=== PATIENT | male | born 1955 | race Two or more races ===

== ENCOUNTER 2018-04-23 23:19 | Emergency (ER) | payer OTHER ==
[2018-04-23] MEDS ORDERED: FUROSEMIDE INJ/PF 40 MG/4 ML SDV IV ONE (23:46)
--- NOTE | 2018-04-23 23:49 | ER Document Report ---
ED General - General Chief Complaint: CHF Exacerbation Stated Complaint: DIFFICULTY BREATHING Time Seen by Provider: 04/23/18 23:41 Notes: Patient is a very pleasant 62-year-old male with a history of congestive heart failure who has a known ejection fraction of 25% and AICD in place. No chest pain. He presents with difficulty breathing. He says been worsening over the last few days. She says that he has not been following his diet. He has been eating a lot of salty foods and not been very compliant with his diet. He says he has been taking his medicines. He takes Lasix 40 mg twice a day. No fevers. No vomiting. No diarrhea. He says he feels like he has some swelling and subcutaneous tissues abdomen but otherwise does not have significant abdomen pain. Patient denies much swelling or edema in his legs. He does have previous history of CA. He says this time does not feel similar to his previous CA. No other complaints at this time. TRAVEL OUTSIDE OF THE [place] IN LAST 30 DAYS: No - Related Data Allergies/Adverse Reactions: No Known Allergies Allergy (Verified 07/29/12 11:34) Past Medical History - Social History Smoking Status: Never Smoker Frequency of alcohol use: None Drug Abuse: None Family History: Reviewed & Not Pertinent - Past Medical History Cardiac Medical History: Reports: Hx Hypercholesterolemia - Immunizations Hx Diphtheria, Pertussis, Tetanus Vaccination: No Review of Systems - Review of Systems Notes: My Normal Review Basic REVIEW OF SYSTEMS: CONSTITUTIONAL : Denies fever, chills, or sweats. Denies recent illness. EENT: Denies eye, ear, throat, or mouth pain or symptoms. Denies nasal or sinus congestion. CARDIOVASCULAR: Denies chest pain. RESPIRATORY: Dyspnea that is worse when he lays flat. GASTROINTESTINAL: Denies abdominal pain. Denies nausea, vomiting, or diarrhea. GENITOURINARY: Denies difficulty urinating, painful urination, burning, frequency, or blood in urine. SKIN: Denies rash or skin lesions. NEUROLOGICAL: Denies altered mental status or loss of consciousness. Denies headache. Denies weakness or paralysis or loss of use of either side. Denies problems with gait or speech. Denies sensory or motor loss. ALL OTHER SYSTEMS REVIEWED AND NEGATIVE. Physical Exam - Vital signs Vitals: Temp Pulse Resp BP Pulse Ox 97.7 F 88 20 147/78 H 95 04/23/18 23:26 04/23/18 23:26 04/23/18 23:26 04/23/18 23:26 04/23/18 23:26 - Notes Notes: General Appearance: Well nourished, alert, cooperative, mild acute distress, no obvious discomfort. Vitals: reviewed, See vital signs table. Head: no swelling or tenderness to the head Eyes: PERRL, EOMI, Conjuctiva clear Mouth: No decreasd moisture Neck: Supple, no neck tenderness, No thyromegaly Lungs: No wheezing, basilar rales, No rhonci, No accessory muscle use, good air exchange bilaterally. Heart: Normal rate, Regular rythm, No murmur, no rub Abdomen: Normal BS, soft, No rigidity, No abdominal tenderness, No guarding, no rebound, no abdominal masses, no organomegaly Extremities: strength 5/5 in all extremities, good pulses in all extremities, no swelling or tenderness in the extremities, bilateral lower extremity edema. Skin: warm, dry, appropriate color, no rash Neuro: speech clear, oriented x 3, normal affect, responds appropriately to questions. Course - Re-evaluation Re-evalutation: 04/24/18 06:25 1 dose of Lasix patient a large amount diuresis and feels much improved. He is able to lay down completely flat with any difficulty breathing. Oxygen saturation is normal except for when he sleeps. He has some sleep apnea therefore his oxygen saturation drops a little bit when he sleeps however when he is awake his oxygen saturation is 97-98%. He has no increased work of breathing. Lung navarro are now clear. I talked at length about avoiding salt in his diet and watching what he eats. He agrees to do this. Encouraged him to take his furosemide as prescribed. I encouraged him return to ER immediately if he has chest pain, difficulty breathing, fevers, or if he feels unwell. Patient agrees with plan and will be discharged home. Dictation of this chart was performed using voice recognition software; therefore, there may be some unintended grammatical errors. - Vital Signs Vital signs: Temp Pulse Resp BP Pulse Ox 98.2 F 88 16 99/59 L 94 04/24/18 03:01 04/23/18 23:26 04/24/18 03:01 04/24/18 03:01 04/24/18 03:01 - Laboratory Result Diagrams: 04/24/18 00:10 04/24/18 01:55 Laboratory results interpreted by me: 04/24/18 04/24/18 04/24/18 00:10 01:55 01:55 RBC 4.06 L Hgb 11.9 L Hct 35.6 L RDW 14.4 H Lymphocytes % 12.9 L BUN 24 H Glucose 137 H NT-Pro-B Natriuret Pep 2040 H - EKG Interpretation by Me Additional EKG results interpreted by me: 04/24/18 00:01 EKG is reviewed and interpreted by me. EKG shows sinus rhythm with a rate of 75 bpm. Patient has a right bundle branch block which is new in comparison to his old EKG from July 29, 2012; however, patient has had a pacemaker ICD placed since his previous EKG. AR interval is within normal range. QRS duration is prolonged. QT interval is within normal range. Patient does have some Q waves in the anterior leads. No ST segment elevation or depression. Discharge - Discharge Clinical Impression: CHF (congestive heart failure) Qualifiers: Heart failure type: unspecified Heart failure chronicity: chronic Qualified Code(s): I50.9 - Heart failure, unspecified Condition: Good Disposition: HOME, SELF-CARE Additional Instructions: Please return to the ER immediately if you develop difficulty breathing, chest pain, fevers, or feel unwell. Please follow up with your doctor on Friday. Avoid salt in your diet. please take your furosemide as prescribed. [facility]errals: [facility] [[facility]] - Follow up as needed
[2018-04-24 00:32] LABS: ABSOLUTE BASOPHILS # (AUTO) 0.1 10^3/uL (0.0-0.2); ABSOLUTE EOSINOPHILS # (AUTO) 0.4 10^3/uL (0.0-0.6); ABSOLUTE LYMPHOCYTES (AUTO) 1.3 10^3/uL (0.5-4.7); ABSOLUTE MONOCYTES (AUTO) 0.6 10^3/uL (0.1-1.4); ABSOLUTE NEUT (AUTO) 7.5 10^3/uL (1.7-8.2); BASOPHILS % (AUTO) 0.7 % (0-2); EOSINOPHILS % (AUTO) 4.1 % (0-6); HEMATOCRIT 35.6 % (37.9-51.0); HEMOGLOBIN 11.9 g/dL (13.5-17.0); LYMPHOCYTES % (AUTO) 12.9 % (13-45); MEAN CORPUSCULAR HEMOGLOBIN 29.4 pg (27.0-33.4); MEAN CORPUSCULAR HGB CONC 33.5 g/dL (32.0-36.0); MEAN CORPUSCULAR VOLUME 88 fl (80-97); MONOCYTES % (AUTO) 6.3 % (3-13); PLATELET COUNT 200 10^3/uL (150-450); RED BLOOD COUNT 4.06 10^6/uL (4.35-5.55); RED CELL DISTRIBUTION WIDTH 14.4 % (11.5-14.0); TOTAL CELLS COUNTED % (AUTO) 100 %; WHITE BLOOD COUNT 9.8 10^3/uL (4.0-10.5)
--- NOTE | 2018-04-24 00:56 | RADIOLOGY REPORT (SQ) ---
CLINICAL HISTORY: dyspnea COMPARISON: None. TECHNIQUE: XR CHEST 1 VIEW 04/23/2018 11:46 PM STILL TENDER FINDINGS: Cardiac silhouette is enlarged. Sternotomy and left AICD present. Lungs are clear without consolidation, atelectasis, mass or edema. There are small pleural effusions. There is no pneumothorax. There are no acute osseous findings. IMPRESSION: Small pleural effusions. No definite pneumonia.
[2018-04-24 02:25] LABS: ALANINE AMINOTRANSFERASE 33 U/L (21-72); ALBUMIN 4.3 g/dL (3.5-5.0); ALKALINE PHOSPHATASE 113 U/L (38-126); ANION GAP 11 (5-19); ASPARTATE AMINO TRANSFERASE 22 U/L (17-59); BILIRUBIN,DIRECT 0.3 mg/dL (0.0-0.4); BILIRUBIN,TOTAL 0.6 mg/dL (0.2-1.3); BLOOD UREA NITROGEN 24 mg/dL (7-20); CALCIUM 9.2 mg/dL (8.4-10.2); CARBON DIOXIDE 30 mmol/L (22-30); CHLORIDE 102 mmol/L (98-107); CREATINE KINASE 80 U/L (55-170); GLUCOSE 137 mg/dL (75-110); POTASSIUM 4.7 mmol/L (3.6-5.0); SODIUM 143.4 mmol/L (137-145); TOTAL PROTEIN 7.6 g/dL (6.3-8.2)
[2018-04-24 02:35] LABS: CREATINE KINASE MB 1.38 ng/mL (<4.55); TROPONIN I 0.029 ng/mL
[2018-04-24 03:25] VITALS: BP 99/59
--- NOTE | 2018-04-24 09:28 | EKG REPORT ---
SEVERITY:- ABNORMAL ECG - SINUS RHYTHM RIGHT BUNDLE BRANCH BLOCK INFERIOR INFARCT, OLD LATERAL INFARCT, OLD ANTERIOR INFARCT, OLD : Confirmed by: Dorita Manuel 24-Apr-2018 09:27:05
== END 2018-04-24 03:25 | disposition home or self-care (01) ==
LOC: ER 23:19
DX: I50.9 Heart failure, unspecified (principal); E78.00 Pure hypercholesterolemia, unspecified; Z95.810 Presence of automatic (implantable) cardiac defibrillator; I25.2 Old myocardial infarction
CPT/HCPCS: 93005; 99285; 96374; 36415; 82553; 82550; 85025; 80053; 84484; 83880; 71045; 93010; J1940

== ENCOUNTER 2018-09-24 10:30 | Emergency (ER) | payer OTHER, MEDICARE ==
--- NOTE | 2018-09-24 11:17 | ER Document Report ---
ED Medical Screen (RME) - General Chief Complaint: Chest Pain Stated Complaint: CHEST PAIN Time Seen by Provider: 09/24/18 11:15 Primary Care Provider: ARLETTE WRAY [Primary Care Provider] - Follow up as needed Mode of Arrival: Wheelchair Information source: Patient Notes: Patient presents with family member with a complaint of chest pain off and on since yesterday. Patient also reports shortness of breath. Patient was due to have a repeat heart cath but patient is a patient of the [facility] and they have dropped the ball and getting his procedure scheduled. Patient does have a history of stent x1 with pacemaker, CAD, diabetes, CHF and hypertension. Patient does take Brilinta as well as aspirin daily and has had both of these today I have greeted and performed a rapid initial assessment of this patient. A comprehensive ED assessment and evaluation of the patient, analysis of test results and completion of the medical decision making process will be conducted by additional ED providers. TRAVEL OUTSIDE OF THE [place] IN LAST 30 DAYS: No - Related Data Allergies/Adverse Reactions: Flu Vaccine Allergy (Uncoded 09/24/18 10:35) Past Medical History - Past Medical History Cardiac Medical History: Reports: Hx Congestive Heart Failure, Hx Hypercholesterolemia, Hx Hypertension Renal/ Medical History: Denies: Hx Peritoneal Dialysis - Immunizations Hx Diphtheria, Pertussis, Tetanus Vaccination: No Physical Exam - Vital signs Vitals: Temp Pulse Resp BP Pulse Ox 98.0 F 74 24 H 94/60 L 94 09/24/18 10:50 09/24/18 10:50 09/24/18 10:50 09/24/18 10:50 09/24/18 10:50 - Respiratory Respiratory status: No respiratory distress. No: Labored - Cardiovascular Rhythm: Regular Heart sounds: S1 appreciated, S2 appreciated Course - Vital Signs Vital signs: Temp Pulse Resp BP Pulse Ox 98.0 F 74 24 H 94/60 L 94 09/24/18 10:50 09/24/18 10:50 09/24/18 10:50 09/24/18 10:50 09/24/18 10:50 Doctor's Discharge - Discharge Referrals: [facility] [Primary Care Provider] - Follow up as needed
--- NOTE | 2018-09-24 11:20 | RADIOLOGY REPORT (SQ) ---
EXAM DESCRIPTION: CHEST 2 VIEWS COMPLETED DATE/TIME: 09/24/2018 11:07 am REASON FOR STUDY: Chest Pain COMPARISON: 04/24/2018 EXAM PARAMETERS: NUMBER OF VIEWS: two views TECHNIQUE: Digital Frontal and Lateral radiographic views of the chest acquired. RADIATION DOSE: NA LIMITATIONS: none FINDINGS: LUNGS AND PLEURA: No opacities, masses or pneumothorax. No pleural effusion. MEDIASTINUM AND HILAR STRUCTURES: No masses or contour abnormalities. HEART AND VASCULAR STRUCTURES: Heart normal size. No evidence for failure. BONES: No acute findings. HARDWARE: Median sternotomy hardware with evidence of prior CABG. Left-sided defibrillator with lead overlying right ventricle. OTHER: No other significant finding. IMPRESSION: NO ACUTE RADIOGRAPHIC FINDING IN THE CHEST. TECHNICAL DOCUMENTATION: JOB ID: [id number] [employer]- All Rights Reserved Reading location - IP/workstation name: [email or web address]
[2018-09-24 11:44] LABS: ABSOLUTE EOSINOPHILS # (AUTO) 0.2 10^3/uL (0.0-0.6); ABSOLUTE LYMPHOCYTES (AUTO) 1.1 10^3/uL (0.5-4.7); ABSOLUTE MONOCYTES (AUTO) 0.5 10^3/uL (0.1-1.4); ABSOLUTE NEUT (AUTO) 8.1 10^3/uL (1.7-8.2); BASOPHILS % (AUTO) 0.5 % (0-2); EOSINOPHILS % (AUTO) 1.8 % (0-6); HEMOGLOBIN 11.7 g/dL (13.5-17.0); LYMPHOCYTES % (AUTO) 10.6 % (13-45); MEAN CORPUSCULAR HEMOGLOBIN 28.7 pg (27.0-33.4); MEAN CORPUSCULAR HGB CONC 32.5 g/dL (32.0-36.0); MEAN CORPUSCULAR VOLUME 89 fl (80-97); MONOCYTES % (AUTO) 4.9 % (3-13); PLATELET COUNT 182 10^3/uL (150-450); RED BLOOD COUNT 4.06 10^6/uL (4.35-5.55); RED CELL DISTRIBUTION WIDTH 14.4 % (11.5-14.0); SEGMENTED NEUTROPHILS % (AUTO) 82.2 % (42-78); TOTAL CELLS COUNTED % (AUTO) 100 %; WHITE BLOOD COUNT 9.9 10^3/uL (4.0-10.5)
[2018-09-24 11:53] LABS: INTERNATIONAL RATION (INR) 0.87; PROTHROMBIN TIME 12.3 SEC (11.4-15.4)
[2018-09-24 12:04] LABS: ALANINE AMINOTRANSFERASE 28 U/L (21-72); ALBUMIN 4.1 g/dL (3.5-5.0); ALKALINE PHOSPHATASE 114 U/L (38-126); ANION GAP 13 (5-19); ASPARTATE AMINO TRANSFERASE 19 U/L (17-59); BILIRUBIN,DIRECT 0.3 mg/dL (0.0-0.4); BILIRUBIN,TOTAL 0.3 mg/dL (0.2-1.3); BLOOD UREA NITROGEN 40 mg/dL (7-20); CALCIUM 9.1 mg/dL (8.4-10.2); CARBON DIOXIDE 27 mmol/L (22-30); CHLORIDE 101 mmol/L (98-107); CREATINE KINASE 78 U/L (55-170); GLUCOSE 241 mg/dL (75-110); POTASSIUM 4.9 mmol/L (3.6-5.0); SODIUM 140.6 mmol/L (137-145); TOTAL PROTEIN 7.3 g/dL (6.3-8.2)
[2018-09-24 12:28] LABS: CREATINE KINASE MB 0.74 ng/mL (<4.55); TROPONIN I 0.019 ng/mL
--- NOTE | 2018-09-24 15:31 | RADIOLOGY REPORT (SQ) ---
EXAM DESCRIPTION: ABDOMEN 2 VIEWS COMPLETED DATE/TIME: 09/24/2018 3:22 pm REASON FOR STUDY: Constipation, difficulty breathing in COMPARISON: None. NUMBER OF VIEWS: One view. TECHNIQUE: Supine radiographic image of the abdomen acquired. LIMITATIONS: None. FINDINGS: BOWEL GAS PATTERN: Normal bowel gas pattern. No dilated loops. CONSTIPATION: mild CALCIFICATIONS: No suspicious calcifications. SOFT TISSUES: No gross mass or suggestion of organomegaly. HARDWARE: None in the abdomen. BONES: No acute fracture. No worrisome bone lesions. OTHER: No other significant finding. IMPRESSION: NO RADIOGRAPHIC EVIDENCE FOR ACUTE ABDOMINAL DISEASE. Mild constipation. TECHNICAL DOCUMENTATION: JOB ID: [id number] [place]-72 2010 [employer]- All Rights Reserved Reading location - IP/workstation name: [email or web address]
[2018-09-24 18:14] VITALS: BP 117/78
--- NOTE | 2018-09-24 19:40 | EKG REPORT ---
SEVERITY:- ABNORMAL ECG - SINUS RHYTHM ATRIAL PREMATURE COMPLEX RIGHT BUNDLE BRANCH BLOCK INFERIOR INFARCT, AGE INDETERMINATE ANTEROLATERAL INFARCT, AGE INDETERMINATE : Confirmed by: Salome Mcmanus MD 24-Sep-2018 19:39:39
--- NOTE | 2018-09-24 21:23 | ER Document Report ---
Entered by ARNAUD STOCKTON SCRIBE 09/24/18 1448 Acting as scribe for:KAREN CEJA MD ED Cardiac - General Chief Complaint: Chest Pain Stated Complaint: CHEST PAIN Time Seen by Provider: 09/24/18 11:15 Primary Care Provider: K[facility]AL[facility],ARLETTE [Primary Care Provider] - Follow up as needed Mode of Arrival: Wheelchair Information source: Patient Notes: 63-year-old male with x1 stent placed in 2011 who presents to the emergency department today with complaints of chest pain with associated shortness of breath. Patient states he has been having chest pain for several months but it has become constant over the last x1-2 weeks. Patient states the pain happens about once a day and he takes nitroglycerin for it which eases the pain. Patient states he was put on Imdur around x3 months ago and was taken off of it x1 month ago. Patient states he did not really notice any change in his chest pain or shortness of breath with the starting or stopping of the Imdur. Patient mentions dyspnea on exertion but states that he sometimes has shortness of breath as well when lying down. Patient is not on home oxygen. Patient states he believes it is due to constipation. Patient states that he had a bowel movement earlier today. Daughter at bedside states the patient's blood pressure ranges anywhere from 120/80 - 90/60. TRAVEL OUTSIDE OF THE [place] IN LAST 30 DAYS: No - Related Data Allergies/Adverse Reactions: Flu Vaccine Allergy (Uncoded 09/24/18 10:35) Past Medical History - General Information source: Patient - Social History Smoking Status: Former Smoker Cigarette use (# per day): No Frequency of alcohol use: None Drug Abuse: None Lives with: Family Family History: Reviewed & Not Pertinent Patient has suicidal ideation: No Patient has homicidal ideation: No - Past Medical History Cardiac Medical History: Reports: Hx Congestive Heart Failure, Hx Hypercholesterolemia, Hx Hypertension Endocrine Medical History: Reports: Hx Diabetes Mellitus Type 2 Past Surgical History: Reports: Hx Coronary Stent, Hx Pacemaker - Immunizations Hx Diphtheria, Pertussis, Tetanus Vaccination: No Review of Systems - Review of Systems Constitutional: No symptoms reported EENT: No symptoms reported Cardiovascular: See HPI, Chest pain Respiratory: See HPI, Cough, Short of breath Gastrointestinal: See HPI, Constipation Genitourinary: No symptoms reported Male Genitourinary: No symptoms reported Musculoskeletal: No symptoms reported Skin: No symptoms reported Hematologic/Lymphatic: No symptoms reported Neurological/Psychological: No symptoms reported -: Yes All other systems reviewed and negative Physical Exam - Vital signs Vitals: Temp Pulse Resp BP Pulse Ox 98.0 F 74 24 H 94/60 L 94 09/24/18 10:50 09/24/18 10:50 09/24/18 10:50 09/24/18 10:50 09/24/18 10:50 - Notes Notes: Physical Exam: General: Alert, appears well. HEENT: Normocephalic. Atraumatic. PERRL. Extraocular movements intact. Oropharynx clear. Neck: Supple. Non-tender. Respiratory: No respiratory distress. Clear and equal breath sounds bilaterally. Cardiovascular: Regular rate and rhythm. Abdominal: Obese. No distension. Normal Bowel Sounds. Back: Non-tender. No deformity or step off. Extremities: Moves all four extremities. Upper extremities: Normal inspection. Normal ROM. Lower extremities: Trace edema. Normal ROM. Neurological: Normal cognition. AAOx4. Normal speech. Psychological: Normal affect. Normal Mood. Skin: Warm. Dry. Normal color. Course - Re-evaluation Re-evalutation: 09/24/18 18:01 On reviewing the history with the patient and his daughter, it appears that he drinks a large number of regular sodas. He is morbidly obese and this contributes to his breathing difficulty. We had a long discussion about switching to diet sodas and told him about my experience. He is agreeable to try this route in order to help lose weight. He will also drink some mag citrate when he gets home to try to help empty some of the stool out of his colon. He does have bowel movements up to 3 times a day, but his x-rays do show moderate constipation. The chest pain he describes sounds like stable angina as it occurred once daily and immediately relieved with nitroglycerin. The right bundle branch block that his providers were concerned about is not a new finding and was present when he was seen here in April 2018. His daughter has been in contact with his master control technician in [place] and they are trying to get him scheduled for a cardiac catheterization. When I have gone back into see the patient, nurse had laid him down and his breathing became much more difficult and his pulse ox dropped to about 89%. I helped him sit up to a comfortable level, and his breathing improved and his pulse ox reading increased to 96 to 98% on room air. Is obvious that his obesity and constipation impairs his respiratory excursion and he should be in some upright position as tolerated all the time. I discussed his case with Dr. Mcmanus to see if he agreed that there is no urgent reason to do a cardiac cath but he should probably have one sometime in the near future. Dr. Mcmanus agrees and feels the patient can safely be discharged home. - Vital Signs Vital signs: Temp Pulse Resp BP Pulse Ox 98.0 F 74 17 99/76 L 90 L 09/24/18 10:50 09/24/18 10:50 09/24/18 17:26 09/24/18 17:26 09/24/18 17:25 - Laboratory Result Diagrams: 09/24/18 11:28 09/24/18 11:28 Laboratory results interpreted by me: 09/24/18 09/24/18 11:28 11:28 RBC 4.06 L Hgb 11.7 L Hct 36.0 L RDW 14.4 H Seg Neutrophils % 82.2 H Lymphocytes % 10.6 L BUN 40 H Creatinine 1.59 H Est GFR ( Amer) 53 L Est GFR (Non-Af Amer) 44 L Glucose 241 H - Diagnostic Test Radiology reviewed: Image reviewed, Reports reviewed - Chest x-ray does not show any acute process and there is no congestive heart failure at this time. The two-way abdomen shows constipation but no other abnormality. Discharge - Discharge Clinical Impression: Shortness of breath Chest pain Qualifiers: Chest pain type: unspecified Qualified Code(s): R07.9 - Chest pain, unspecified Constipation Qualifiers: Constipation type: unspecified constipation type Qualified Code(s): K59.00 - Constipation, unspecified Condition: Stable Disposition: HOME, SELF-CARE Additional Instructions: Your evaluation today shows that much of your breathing difficulty is related to your obesity and constipation. When you lay down you have difficulty breathing in deep enough. When you sit up, your oxygen levels are normal. You report chest pain that occurs once daily and is promptly relieved by nitroglycerin. This would be called stable angina. When you get home this evening, drink a bottle of magnesium citrate. Drink plenty of water, but be sure to avoid any added sodium. Start taking MiraLAX once daily. Make a serious attempt to begin losing weight, as this will help your breathing problem. Call your master control technician tomorrow to review this visit and see if they can get you on the schedule for a cardiac catheterization. RETURN TO THE EMERGENCY ROOM IF ANY NEW OR WORSENING SYMPTOMS. Referrals: [facility] [Primary [facility]] - Follow up as needed Scribe Attestation: 09/24/18 18:07 I personally performed the services described in the documentation, reviewed and edited the documentation which was dictated to the scribe in my presence, and it accurately records my words and actions. I personally performed the services described in the documentation, reviewed and edited the documentation which was dictated to the scribe in my presence, and it accurately records my words and actions.
== END 2018-09-24 18:20 | disposition home or self-care (01) ==
LOC: ER 10:30
DX: R07.9 Chest pain, unspecified (principal); K59.00 Constipation, unspecified; E66.01 Morbid (severe) obesity due to excess calories; R06.02 Shortness of breath; I45.10 Unspecified right bundle-branch block; R05 Cough; R60.0 Localized edema; I10 Essential (primary) hypertension; E11.9 Type 2 diabetes mellitus without complications; Z95.0 Presence of cardiac pacemaker; Z95.5 Presence of coronary angioplasty implant and graft; Z87.891 Personal history of nicotine dependence; Z88.7 Allergy status to serum and vaccine
CPT/HCPCS: 36415; 71046; 74019; 80053; 82550; 82553; 83880; 84484; 85025; 85610; 93005; 93010; 99285

== ENCOUNTER 2019-10-08 17:42 | Emergency (ER) | payer OTHER ==
--- NOTE | 2019-10-08 17:58 | ER Document Report ---
ED General - General Chief Complaint: Shortness Of Breath Stated Complaint: SHORTNESS OF BREATH Time Seen by Provider: 10/08/19 17:51 Primary Care Provider: AGUSTÍN FARRAR FNP-C [Primary Care Provider] - Follow up as needed Mode of Arrival: Ambulatory Information source: Patient Notes: 64-year-old male with chief complaint of chest pain. Please note he has a history of CVA atherosclerosis vascular disease and saw Dr. Azul 24 Sep 2018 with the following evaluation below; 63-year-old male with x1 stent placed in 2011 who presents to the emergency department today with complaints of chest pain with associated shortness of breath. Patient states he has been having chest pain for several months but it has become constant over the last x1-2 weeks. Patient states the pain happens about once a day and he takes nitroglycerin for it which eases the pain. Patient states he was put on Imdur around x3 months ago and was taken off of it x1 month ago. Patient states he did not really notice any change in his chest pain or shortness of breath with the starting or stopping of the Imdur. Patient mentions dyspnea on exertion but states that he sometimes has shortness of breath as well when lying down. Patient is not on home oxygen. Patient states he believes it i s due to constipation. Patient states that he had a bowel movement earlier today. Daughter at bedside states the patient's blood pressure ranges anywhere from 120/80 - 90/60. TRAVEL OUTSIDE OF THE [place] IN LAST 30 DAYS: No my notes 64-year-old male with chief complaint of 3 weeks of nonassociated with malaise and some swelling of his legs. He is evaluated at [facility] cough his PCP recently. Patient has a history of [place] x2 COPD hypertension IDDM. He denies any exposure to coronavirus which is now pandemic around the world. Patient is a endomorphic body habitus. Patient was seen by his personal doctor this week with chest x-ray and he was supposed to get his coronavirus test done today. Patient's prior history includes 3 years ago a CABG at the [facility]. Patient was in the [employer] between [id number] and was stationed at [facility] in [facility]. Patient reports he was seen 1 month ago in [facility] because of a swallowing difficulty and feels like something sticking in his throat and esophagus.. But he was told by the ENT that any operation could not be done at this time because of the coronavirus outbreak.. Patient has MELVIN with shortness of breath developing only 6 feet from where he attempts to walk. TRAVEL OUTSIDE OF THE [place] IN LAST 30 DAYS: No - HPI Onset: Other - x 3 weeks Onset/Duration: Persistent, Worse Quality of pain: No pain Severity: Mild Pain Level: 1 Associated symptoms: Shortness of breath Exacerbated by: Denies Relieved by: Denies Similar symptoms previously: Yes - Related Data Allergies/Adverse Reactions: Flu Vaccine Allergy (Uncoded 09/24/18 10:35) Past Medical History - General Information source: Patient - Social History Smoking Status: Former Smoker Cigarette use (# per day): No Chew tobacco use (# tins/day): No Smoking Education Provided: No Frequency of alcohol use: Rare Drug Abuse: None Lives with: Family Family History: Reviewed & Not Pertinent Patient has suicidal ideation: No Patient has homicidal ideation: No - Past Medical History Cardiac Medical History: Reports: Hx Congestive Heart Failure, Hx Hypercholesterolemia, Hx Hypertension Endocrine Medical History: Reports: Hx Diabetes Mellitus Type 2 Renal/ Medical History: Denies: Hx Peritoneal Dialysis Past Surgical History: Reports: Hx Cardiac Surgery - stent, pacemaker, Hx Coronary Stent, Hx Pacemaker - Immunizations Hx Diphtheria, Pertussis, Tetanus Vaccination: No Review of Systems - Review of Systems Constitutional: No symptoms reported, Malaise EENT: No symptoms reported Cardiovascular: No symptoms reported Respiratory: See HPI, Cough, Short of breath, Wheezing Gastrointestinal: No symptoms reported Genitourinary: No symptoms reported Male Genitourinary: No symptoms reported Musculoskeletal: No symptoms reported Skin: No symptoms reported Hematologic/Lymphatic: No symptoms reported Neurological/Psychological: No symptoms reported Physical Exam - Vital signs Vitals: Resp Pulse Ox 25 H 92 10/08/19 17:43 10/08/19 17:43 - General General appearance: Alert - HEENT Head: Normocephalic, Atraumatic Eyes: Normal Pupils: PERRL Mouth/Lips: Normal Mucous membranes: Dry Pharynx: Normal Neck: Normal - Respiratory Respiratory status: Respiratory distress, Depressed respirations Chest status: Pain with cough, Pain with deep breathing Breath sounds: Decreased air movement, Wheezing Chest palpation: Normal - Cardiovascular Rhythm: Regular Heart sounds: Normal auscultation Murmur: No - Abdominal Inspection: Morbidly Obese - Rectal Hemorrhoids: Other - deferred - Genitourinary Tenderness: Other - deferred - Back Back: Normal - Extremities General upper extremity: Normal inspection General lower extremity: Edema - Neurological Neuro grossly intact: Yes Cognition: Normal Orientation: AAOx4 Gustavus Coma Scale Eye Opening: Spontaneous Fadia Coma Scale Verbal: Oriented Gustavus Coma Scale Motor: Obeys Commands Fadia Coma Scale Total: 15 Speech: Normal Motor strength normal: LUE, RUE, LLE, RLE Sensory: Normal - Psychological Associated symptoms: Normal affect - Skin Skin Temperature: Warm Skin Moisture: Dry Course - Vital Signs Vital signs: Temp Pulse Resp BP Pulse Ox 98.0 F 20 114/73 93 10/08/19 18:25 10/08/19 18:00 10/08/19 18:01 10/08/19 18:01 - Laboratory Result Diagrams: 10/08/19 17:57 10/08/19 17:57 Laboratory results interpreted by me: 10/08/19 10/08/19 10/08/19 17:57 17:57 17:57 WBC 11.1 H RBC 4.21 L Hgb 12.2 L Hct 36.9 L RDW 15.0 H Lymph % (Auto) 11.5 L Eos % (Auto) 8.7 H Absolute Eos (auto) 1.0 H Potassium 5.7 H BUN 33 H Est GFR (MDRD) Non-Af 59 L Glucose 172 H Alkaline Phosphatase 133 H NT-Pro-B Natriuret Pep 910 H Critical Care Note - Critical Care Note Total time excluding time spent on procedures (mins): 90 Comments: Patient refuses admission and chest x-ray results and lab results were presented to the patient. He was given mccabe virus test Decadron IV Rocephin IV and albuterol breathing treatment prior to discharge. Discharge - Discharge Clinical Impression: COPD exacerbation CHF (congestive heart failure) Qualifiers: Heart failure type: unspecified Heart failure chronicity: acute Qualified Code(s): I50.9 - Heart failure, unspecified URI (upper respiratory infection) Qualifiers: URI type: unspecified URI Qualified Code(s): J06.9 - Acute upper respiratory infection, unspecified Condition: Fair Disposition: HOME, SELF-CARE Instructions: Upper Respiratory Illness ([facility]) Additional Instructions: Follow-up with personal doctor this week return to ER as needed take medicines as directed encourage fluids avoid exertional exercise and any excessive walking Prescriptions: Clarithromycin [Biaxin 500 mg Tablet] 1 tab PO Q12 #14 tab Albuterol Sulfate [Proventil 0.5% Neb 2.5 mg/0.5 ml Vial.neb] 2.5 mg NEB QID #1 pad Benzonatate [Tessalon Perles 100 mg Capsule] 100 mg PO BID #20 capsule Metolazone [Zaroxolyn 5 Mg Tablet] 5 mg PO DAILY #5 tablet Referrals: AGUSTÍN FARRAR FNP-C [Primary Care Provider] - Follow up as needed
[2019-10-08 18:16] LABS: ABSOLUTE BASOPHILS # (AUTO) 0.1 10^3/uL (0.0-0.2); ABSOLUTE LYMPHOCYTES (AUTO) 1.3 10^3/uL (0.5-4.7); ABSOLUTE MONOCYTES (AUTO) 0.5 10^3/uL (0.1-1.4); ABSOLUTE NEUT (AUTO) 8.2 10^3/uL (1.7-8.2); BASOPHILS % (AUTO) 0.8 % (0-2); EOSINOPHILS % (AUTO) 8.7 % (0-6); HEMATOCRIT 36.9 % (37.9-51.0); HEMOGLOBIN 12.2 g/dL (13.5-17.0); LYMPHOCYTES % (AUTO) 11.5 % (13-45); MEAN CORPUSCULAR HEMOGLOBIN 29.1 pg (27.0-33.4); MEAN CORPUSCULAR HGB CONC 33.1 g/dL (32.0-36.0); MEAN CORPUSCULAR VOLUME 88 fl (80-97); MONOCYTES % (AUTO) 4.7 % (3-13); PLATELET COUNT 181 10^3/uL (150-450); RED BLOOD COUNT 4.21 10^6/uL (4.35-5.55); SEGMENTED NEUTROPHILS % (AUTO) 74.3 % (42-78); TOTAL CELLS COUNTED % (AUTO) 100 %; WHITE BLOOD COUNT 11.1 10^3/uL (4.0-10.5)
[2019-10-08 18:18] LABS: INTERNATIONAL RATION (INR) 0.99; PARTIAL THROMBOPLASTIN TIME 25.8 SEC (23.5-35.8)
[2019-10-08 18:37] LABS: ALBUMIN 4.3 g/dL (3.5-5.0); ALKALINE PHOSPHATASE 133 U/L (38-126); ANION GAP 9 (5-19); ASPARTATE AMINO TRANSFERASE 26 U/L (17-59); BILIRUBIN,TOTAL 0.5 mg/dL (0.2-1.3); BLOOD UREA NITROGEN 33 mg/dL (7-20); CALCIUM 9.5 mg/dL (8.4-10.2); CARBON DIOXIDE 27 mmol/L (22-30); CHLORIDE 102 mmol/L (98-107); CREATINE KINASE 72 U/L (55-170); GLUCOSE 172 mg/dL (75-110); POTASSIUM 5.7 mmol/L (3.6-5.0); TOTAL PROTEIN 7.9 g/dL (6.3-8.2)
[2019-10-08] MEDS ORDERED: BUMETANIDE INJ/PF 1 MG/4 ML SDV IV ONE (18:42)
[2019-10-08 18:45] LABS: TROPONIN I 0.02 ng/mL
--- NOTE | 2019-10-08 18:49 | EKG REPORT ---
SEVERITY:- ABNORMAL ECG - SINUS RHYTHM RIGHT BUNDLE BRANCH BLOCK INFERIOR INFARCT, AGE INDETERMINATE ANTEROLATERAL INFARCT, AGE INDETERMINATE : Confirmed by: Salome Mcmanus MD 08-Oct-2019 18:49:01
--- NOTE | 2019-10-08 18:52 | RADIOLOGY REPORT (SQ) ---
EXAM DESCRIPTION: CHEST SINGLE VIEW IMAGES COMPLETED DATE/TIME: 10/08/2019 6:38 pm REASON FOR STUDY: sob COMPARISON: 09/24/2018 EXAM PARAMETERS: NUMBER OF VIEWS: One view. TECHNIQUE: Single frontal radiographic view of the chest acquired. RADIATION DOSE: NA LIMITATIONS: None. FINDINGS: LUNGS AND PLEURA: Low lung volumes. No opacities, masses or pneumothorax. No pleural eff usion. MEDIASTINUM AND HILAR STRUCTURES: No masses. Contour normal. HEART AND VASCULAR STRUCTURES: Cardiomegaly, stable finding. No evidence for failure. BONES: No acute findings. HARDWARE: Prior anterior median sternotomy and cardiac pacemaker. OTHER: No other significant finding. IMPRESSION: 1. Low lung volumes. No acute pulmonary findings. 2. Cardiomegaly. No evidence for failure. TECHNICAL DOCUMENTATION: JOB ID: [id number] 2010 [employer]- All Rights Reserved Reading location - IP/workstation name: [email or web address]
[2019-10-08] MEDS ORDERED: CEFTRIAXONE 1 GM/D5W RTU 1 GM/50 ML RTUPB IV ONE (20:07)
[2019-10-08] MEDS ORDERED: DEXAMETHASONE SOD PHOS INJ 10 MG/1 ML VIAL IV ONE (20:09)
[2019-10-08] MEDS ORDERED: ALBUTEROL SULFATE 0.083% NEB 2.5 MG/3 ML AMPUL NEB ONE (20:10)
[2019-10-08 22:13] VITALS: BP 114/81
== END 2019-10-08 22:13 | disposition home or self-care (01) ==
LOC: ER 17:42
DX: J06.9 Acute upper respiratory infection, unspecified (principal); J44.1 Chronic obstructive pulmonary disease with (acute) exacerbation; I11.0 Hypertensive heart disease with heart failure; I50.9 Heart failure, unspecified; R06.02 Shortness of breath; R07.9 Chest pain, unspecified; R06.00 Dyspnea, unspecified; R53.81 Other malaise; Z87.891 Personal history of nicotine dependence; E11.9 Type 2 diabetes mellitus without complications
CPT/HCPCS: 93005; 94640; 99291; 99292; 96375; 96365; 36415; 87040; 87070; 87880; 82550; 83605; 85025; 85610; 85730; 87635; 80053; 84484; 83880; 71045; 93010; J3490; J0696; J1100

== ENCOUNTER → 2019-11-12 | Outpatient (CLI) | payer MEDICARE ==
--- NOTE | 2019-11-12 12:48 | RADIOLOGY REPORT (SQ) ---
EXAM DESCRIPTION: CHEST PA/LATERAL IMAGES COMPLETED DATE/TIME: 11/12/2019 12:38 pm REASON FOR STUDY: COUGH COMPARISON: 10/08/2019 EXAM PARAMETERS: NUMBER OF VIEWS: two views TECHNIQUE: Digital Frontal and Lateral radiographic views of the chest acquired. RADIATION DOSE: NA LIMITATIONS: none FINDINGS: LUNGS AND PLEURA: No opacities, masses or pneumothorax. No pleural effusion. MEDIASTINUM AND HILAR STRUCTURES: No masses or contour abnormalities. HEART AND VASCULAR STRUCTURES: Heart size is borderline. No pulmonary edema. BONES: No acute findings. HARDWARE: Pacemaker/defibrillator. Sternotomy wires. Graft markers OTHER: No other significant finding. IMPRESSION: Borderline heart size with no pulmonary edema. TECHNICAL DOCUMENTATION: JOB ID: [id number] 2010 [employer]- All Rights Reserved Reading location - IP/workstation name: [email or web address]
== END ==
LOC: OD 12:15
PROVIDERS: ATTEND Registered Nurse
DX: R05 Cough (principal)
CPT/HCPCS: 71046

== ENCOUNTER → 2019-11-27 | Outpatient (CLI) | payer MEDICARE ==
--- NOTE | 2019-11-27 13:58 | ER RDC ASSESSMENT REPORT ---
Intake - In the Last 14 days Have you traveled outside [place]?: No Have you been in close contact with someone CONFIRMED: Yes Worked in Healthcare?: No - Symptoms Subjective Fever([place] feverish): No Chills: No Muscule Aches: No Runny Nose: No Sore Throat: No Cough (New or worsening chronic cough): No Shortness of breath: No Nausea or Vomiting: No Headache: No Abdominal Pain: No Diarrhea(3 or more loose stools in last 24 hours): No - Do you have any of the following Chronic lung disease: Asthma or emphysema or COPD: Yes Chronic Lung Disease Comment: COPD Cystic Fibrosis: No Diabetes: Yes High Blood Pressure: Yes Cardiovascular Disease: Yes Chronic Kidney Disease: No Chronic Liver Disease: No Chronic blood disorder like Sickle Cell Disease: No Weak immune system due to disease or medication: No Neurologic condition that limits movement: No Developmental delay - Moderate to Severe: No Recent (within past 2 weeks) or current : No Morbid Obesity (>100 pounds over ideal weight): No - Objective Temperature: 98.4 F Pulse Rate: 104 Respiratory Rate: 22 Blood Pressure: 131/65 O2 Sat by Pulse Oximetry: 88 - 2LNC Objective: Patient is a well-appearing 64-year-old male who presents today for COVID-19 screening Disposition: Home; Selfcare General - General Stated Complaint: Upper respiratory symptoms Mode of Arrival: Ambulatory Information source: Patient Notes: The patient was evaluated during the global COVID-19 pandemic. That diagnosis was suspected/considered upon initial presentation. Their evaluation, treatment, and testing was consistent with current guidelines for patients who present with complaints or symptoms that may be related to COVID-19. - HPI Patient complains to provider of: No complaint, asymptomatic Quality of pain: No pain Severity: None Pain Level: Denies Associated symptoms: None Exacerbated by: Denies Relieved by: Denies Similar symptoms previously: No Recently seen / treated by doctor: No - Related Data Allergies/Adverse Reactions: Flu Vaccine Allergy (Uncoded 09/24/18 10:35) Past Medical History - Social History Smoking Status: Former Smoker Cigarette use (# per day): No Chew tobacco use (# tins/day): No Smoking Education Provided: No Frequency of alcohol use: Occasional Drug Abuse: None Occupation: Retired Lives with: Family Family History: Reviewed & Not Pertinent - Past Medical History Cardiac Medical History: Reports: Hx Congestive Heart Failure, Hx Heart Attack - x 2, last in 2016, double bypass, Hx Hypercholesterolemia, Hx Hypertension Pulmonary Medical History: Reports: Hx COPD Endocrine Medical History: Reports: Hx Diabetes Mellitus Type 2 Renal/ Medical History: Denies: Hx Peritoneal Dialysis Past Surgical History: Reports: Hx Cardiac Surgery - stent, pacemaker, Hx Coronary Stent, Hx Pacemaker Physical Exam - General General appearance: Appears well In distress: None Notes: PHYSICAL EXAMINATION: GENERAL: Well-appearing and in no acute distress. HEAD: Atraumatic, normocephalic. EYES: sclera anicteric, conjunctiva are normal. ENT: nares patent. Moist mucous membranes. NECK: Normal range of motion, supple without lymphadenopathy. LUNGS: CTAB and equal. No wheezes rales or rhonchi. HEART: Regular rate and rhythm without murmurs. EXTREMITIES: Normal range of motion, no pitting edema. No cyanosis. BACK: No midline or CVA tenderness. NEUROLOGICAL: Cranial nerves grossly intact. Normal speech. Normal gait. PSYCH: Normal mood, normal affect. SKIN: Warm, Dry, normal color and turgor, no obvious lesions or rash noted. Diagnostic Results Laboratory Results: Patient advised at this time they are considered a Person Under Investigation (PUI) for the COVID-19 Coronavirus. They have been made aware it is currently taking 3-5 days to receive their results, and The [facility] Department will call to advise them of their result, whether it is POSITIVE or NEGATIVE. Patient Education/Counseling Counseling/Education: Patient presents with upper respiratory symptoms worrisome for possible COVID- 19. Patient does not have symptoms worrisome as an emergency such as difficulty breathing, shortness of breath, chest pain, pressure, confusion or cyanosis. Patient appears suitable for discharge as they are not of an advanced age, do not have any chronic medical conditions such as diabetes, CAD, immune deficiency, chronic lung disease or chronic kidney disease. Patient's vital si gns are stable and patient is nontoxic in appearance. Good return precautions have been discussed with patient, patient verbalized understanding and is agreeable with discharge plan of care at this time. Patient provided COVID-19 discharge instructions to include: As a person under investigation for COVID-19, the [facility], division of public health advises you to adhere to the following guidance until your test results are reported to you. If your test result is positive, you will receive additional information from your provider and your local health department at that time. Remain at home until you are cleared by the health provider or public health authorities. Keep a log of visitors to your home, notify any visitors to your home of your isolation status. If you plan to move to a new address or leave the county, notify the local health department in your County. Call your doctor or seek care if you have an urgent medical need. Before seeking medical care, call ahead to get instructions from the provider before arriving at the medical office clinic or hospital. Notify them that you are being tested for the virus that causes COVID-19 so that arrangements can be made, as necessary, to prevent transmission to others in the healthcare setting. Next, notify the local health department in your county. If a medical emergency arises and you need to call 911, inform dispatch and the first responders that you are being tested for the virus that causes COVID-19. Next, notify the local health department in your county. Guidance for worsening S/SX: For worsening symptoms, patient has been advised to contact their Primary Care Provider, or go to the nearest Emergency Department. RDC Discharge - Discharge Clinical Impression: COVID-19 Screening URI (upper respiratory infection) Qualifiers: URI type: unspecified URI Qualified Code(s): J06.9 - Acute upper respiratory infection, unspecified Condition: Stable Disposition: Home; Selfcare
[2019-11-27 13:59] VITALS: BP 131/65
== END ==
LOC: RDC 10:57
PROVIDERS: ATTEND Nurse Practitioner Family
DX: Z20.828 Contact with and (suspected) exposure to other viral communicable diseases (principal); J06.9 Acute upper respiratory infection, unspecified; J44.9 Chronic obstructive pulmonary disease, unspecified; I10 Essential (primary) hypertension; E78.00 Pure hypercholesterolemia, unspecified; E11.9 Type 2 diabetes mellitus without complications; Z88.7 Allergy status to serum and vaccine; Z87.891 Personal history of nicotine dependence
CPT/HCPCS: U0003; C9803; 87635; 99201; 99211